=== PATIENT | female | born 1975 | race American Indian/Alaskan Native ===

== ENCOUNTER 2017-01-23 11:37 | Emergency (ER) | payer SELFPAY ==
[2017-01-23 11:59] VITALS: TEMP 98.3
[2017-01-23] MEDS ORDERED: Oxycodone/Acetaminophen 5/325 mg Tab PO STA (12:35)
--- NOTE | 2017-01-23 13:56 | ED PDOC ---
Arrival/HPI - General Chief Complaint: Back Pain Time Seen by Provider: 01/23/17 11:50 Historian: Patient - History of Present Illness Narrative History of Present Illness (Text): 01/23/17 13:58 Patient reports 2 day h/o atraumatic pain in the lower back, worse with movement and with certain positions, especially going from standing to sitting and vice versa, states that she started doing an excercise regimen ~2 weeks ago which include doing crunches, jumping jacks and other kinds of exercises and feels that could have triggered the back pain. Patient states early this morning at 9:00 she took a dose of tramadol and baclofen without any relief, then at 11:00 prior to arrival she took a dose of Motrin 800 mg. Otherwise: (- ) paresthesias, (-) weakness, (-) acute bowel or bladder dysfunction, (-) fever. Has history of prior back problem. PMD Ahktar Past Medical History - Provider Review Nursing Documentation Reviewed: Yes - Infectious Disease Hx of Infectious Diseases: None - Pulmonary Hx Asthma: Yes - Psychiatric Hx Substance Use: No - Surgical History Hx Hysterectomy: Yes Hx Tubal Ligation: Yes - Anesthesia Hx Anesthesia: Yes Hx Anesthesia Reactions: No Hx Malignant Hyperthermia: No Family/Social History - Physician Review Nursing Documentation Reviewed: Yes Family/Social History: No Known Family HX Smoking Status: Never Smoked Hx Alcohol Use: No Hx Substance Use: No Allergies/Home Meds Allergies/Adverse Reactions: Allergies No Known Allergies Allergy (Verified 01/23/17 12:00) Review of Systems - Review of Systems Constitutional: Normal. absent: Fatigue, Weight Change, Fevers Respiratory: Normal. absent: SOB, Cough Cardiovascular: Normal. absent: Chest Pain, Palpitations Gastrointestinal: Normal. absent: Abdominal Pain, Stool Changes, Appetite Changes Musculoskeletal: Normal, Back Pain (prior back pain). absent: Arthralgias, Neck Pain Skin: Normal. absent: Rash, Pruritis, Skin Lesions Physical Exam - Physical Exam Narrative Physical Exam (Text): 01/23/17 14:01 GENERAL APPEARANCE: Patient is awake, alert, oriented x 3, in no acute distress. SKIN: Warm, dry; (-) cyanosis. EYES: (-) conjunctival pallor. ENMT: Mucous membranes moist. NECK: (-) tenderness, (-) stiffness, (-) lymphadenopathy. CHEST AND RESPIRATORY: (-) rales, (-) rhonchi, (-) wheezes; breath sounds equal bilaterally. HEART AND CARDIOVASCULAR: (-) irregularity; (-) murmur, (-) gallop. ABDOMEN AND GI: Soft; (-) tenderness; (-) palpable mass. BACK: Diffusely tender paralumbar area, (+) mild spasm, (-) direct bony tenderness, (-) deformity. Straight leg raising (-) bilaterally. EXTREMITIES: (-) deformity. Distal pulses good bilaterally. NEURO AND PSYCH: Mental status as above. Intact sensation bilaterally; normal strength in extension of the knees, plantar and dorsiflexion of the toes. DTRs symmetric. Vital Signs Temp Pulse Resp BP Pulse Ox 01/23/17 12:59 68 18 119/72 99 01/23/17 11:50 98.3 F 75 20 119/84 100 Medical Decision Making ED Course and Treatment: 01/23/17 13:52 41 yo F c/o low back pain, likely muscle spasm. Given percocet and flexeril po. On re-evaluation, patient reports improvement of pain. Patient has no focal neurological deficits on repeat examination. Patient states that she feels comfortable going home with outpatient follow-up. Patient states she understands to return to the ER right away for new or worsening symptoms or for inability to f/u with PMD as instructed. Patient states that she fully agrees with and understands discharge instructions. States that she agrees with the plan and disposition. Verbalized and repeated discharge instructions and plan. I have given the patient opportunity to ask any additional questions. - Medication Orders Current Medication Orders: Discontinued Medications Cyclobenzaprine HCl (Flexeril) 10 mg PO STAT STA Stop: 01/23/17 12:36 Last Admin: 01/23/17 12:49 Dose: 10 MG Oxycodone/Acetaminophen (Percocet 5/325 Mg Tab) 1 tab PO STAT STA Stop: 01/23/17 12:36 Last Admin: 01/23/17 12:50 Dose: 1 TAB - PA / TRAIN PLANNER / Resident Statement / has reviewed & agrees with the documentation as recorded. Disposition/Present on Arrival - Present on Arrival Any Indicators Present on Arrival: No History of DVT/PE: No History of Uncontrolled Diabetes: No Urinary Catheter: No History of Decub. Ulcer: No History Surgical Site Infection Following: None - Disposition Have Diagnosis and Disposition been Completed?: Yes Diagnosis: Low back pain Disposition: HOME/ ROUTINE Disposition Time: 13:54 Patient Plan: Discharge Patient Problems: Current Active Problems Problem Status Diagnosed Low back pain Acute Condition: IMPROVED Discharge Instructions (ExitCare): Acute Low Back Pain (ED) Print Language: CHILEAN Additional Instructions: Thank you for letting us take care of you today. You were treated for low back pain. The emergency medical care you received today was directed at your acute symptoms. If you were prescribed any medication, please fill it and take as directed. It may take several days for your symptoms to resolve. Return to the Emergency Department if your symptoms worsen, do not improve, or if you have any other problems. Please contact your doctor in 2 days for re-evaluation and follow up. Bring any paperwork you were given at discharge with you along with any medications you are taking to your follow up visit. Our treatment cannot replace ongoing medical care by a primary care provider (PCP) outside of the emergency department. Thank you for allowing the [facility] team to be part of your care today. Prescriptions: Cyclobenzaprine [Cyclobenzaprine HCl] 10 mg PO TID PRN #15 tab PRN Reason: Muscle Spasm Meloxicam [Mobic] 15 mg PO DAILY #20 tab Forms: WORK NOTE
[2017-01-23 14:10] VITALS: BP 114/72; PULSE 66; RESP 17; O2SAT 97
== END 2017-01-23 14:10 | disposition home or self-care (01) ==
LOC: ED 11:37
DX: M54.5 Low back pain (principal)

== ENCOUNTER 2017-01-23 23:39 | Emergency (ER) | payer SELFPAY ==
[2017-01-23 23:51] VITALS: BMI 28.1
[2017-01-23 23:57] VITALS: TEMP 98.1; O2SAT 100
[2017-01-24] MEDS ORDERED: Oxycodone/Acetaminophen 5/325 mg Tab PO STA (00:11)
--- NOTE | 2017-01-24 00:11 | ED PDOC ---
Arrival/HPI - General Chief Complaint: Back Pain Time Seen by Provider: 01/24/17 00:02 Historian: Patient - History of Present Illness Narrative History of Present Illness (Text): 01/24/17 00:06 41 y/o female, pmh including chronic low back pain/pinched nerve?, nkda, c/o lower back pain x 1 week s/p starting new exercise including heavy lifting. Aching and sharp pain, occasionally radiating to the lt. lower extremity with occasional numbness and tingling, no urinary incontinence or retention, no urinary symptoms, was seen here yesterday and discharge home, stated that the pain return again, no palpitation, no dizziness, no new injury or fall, no other medical or psychological complaints. Past Medical History - Provider Review Nursing Documentation Reviewed: Yes - Infectious Disease Hx of Infectious Diseases: None - Cardiac Hx Cardiac Disorders: No - Pulmonary Hx Asthma: Yes - Neurological Hx Neurological Disorder: No - HEENT Hx HEENT Disorder: No - Renal Hx Renal Disorder: No - Endocrine/Metabolic Hx Endocrine Disorders: No - Hematological/Oncological Hx Blood Disorders: No - Integumentary Hx Dermatological Disorder: No - Musculoskeletal/Rheumatological Hx Musculoskeletal Disorders: No - Gastrointestinal Hx Gastrointestinal Disorders: No - Genitourinary/Gynecological Hx Genitourinary Disorders: No - Psychiatric Hx Psychophysiologic Disorder: No Hx Substance Use: No - Surgical History Hx Section: Yes Hx Hysterectomy: Yes Hx Tubal Ligation: Yes - Anesthesia Hx Anesthesia: Yes Hx Anesthesia Reactions: No Hx Malignant Hyperthermia: No Family/Social History - Physician Review Nursing Documentation Reviewed: Yes Family/Social History: Unknown Family HX Smoking Status: Never Smoked Hx Alcohol Use: No Hx Substance Use: No Allergies/Home Meds Allergies/Adverse Reactions: Allergies No Known Allergies Allergy (Verified 01/23/17 23:51) Review of Systems - Review of Systems Constitutional: absent: Fatigue, Fevers Eyes: absent: Vision Changes ENT: absent: Hearing Changes Respiratory: absent: Cough Cardiovascular: absent: Chest Pain Gastrointestinal: absent: Abdominal Pain, Diarrhea, Nausea, Vomiting Genitourinary Female: absent: Dysuria, Frequency, Hematuria, Urine Output Changes, Vaginal Bleeding, Vaginal Discharge, Other Musculoskeletal: Back Pain. absent: Arthralgias, Neck Pain, Joint Swelling, Myalgias Skin: absent: Rash, Pruritis, Skin Lesions Neurological: absent: Headache, Dizziness, Focal Weakness, Gait Changes, Speech Changes, Facial Droop, Disequilibrium, Seizure Endocrine: absent: Diaphoresis Hemo/Lymphatic: absent: Adenopathy Physical Exam Vital Signs Reviewed: Yes Vital Signs Temp Pulse Resp BP Pulse Ox 01/23/17 23:54 98.1 F 84 18 108/74 100 Temperature: Afebrile Blood Pressure: Normal Pulse: Regular Respiratory Rate: Normal Appearance: Positive for: Well-Appearing, Non-Toxic, Uncomfortable Pain Distress: Severe Mental Status: Positive for: Alert and Oriented X 3 - Systems Exam Head: Present: Atraumatic, Normocephalic Pupils: Present: PERRL Extroacular Muscles: Present: EOMI Conjunctiva: Present: Normal Mouth: Present: Moist Mucous Membranes Neck: Present: Normal Range of Motion, Trachea Midline. No: Meningeal Signs, MIDLINE TENDERNESS, Paraspinal Tenderness, Lymphadenopathy Respiratory/Chest: Present: Clear to Auscultation, Good Air Exchange. No: Respiratory Distress, Accessory Muscle Use Cardiovascular: Present: Regular Rate and Rhythm, Normal S1, S2. No: Murmurs Abdomen: Present: Normal Bowel Sounds. No: Tenderness, Distention, Peritoneal Signs Back: Present: Normal Inspection, Other (no rash. ). No: CVA Tenderness, Midline Tenderness, Paraspinal Tenderness, Pain with Leg Raise (unable to perform SLR test due to the pain), Decubitus Ulcer Upper Extremity: Present: Normal Inspection. No: Cyanosis, Edema Lower Extremity: Present: Normal Inspection. No: Edema Neurological: Present: GCS=15, CN II-XII Intact, Speech Normal Skin: Present: Warm, Dry, Normal Color. No: Rashes Psychiatric: Present: Alert, Oriented x 3, Normal Insight, Normal Concentration Medical Decision Making ED Course and Treatment: 01/24/17 00:13 -toradol IM/percocet/lidoderm patch -Lumbar CT -Observe and reassess 01/24/17 01:22 -CT show degenerative/inflammatory changes including Ligamentum flavum thickening. -Ligamentum flavum thickening describes a condition in which the ligamentum flavum demonstrates degenerative or inflammatory changes which result in it swelling. Pt. given mobic and flexeril, I will give her lidoderm patch and prednisone 40mg po in the ER. -Pt. feels much better, cane ordered and given. -Discharge home with lidoderm patch, medrodosepak, cane, continue the mobic and flexeril at home, avoid gym or exercise for 2 weeks, follow up with your own pmd for outpatient physical therapy or MRI if the pain persist without improvement, return to the ER for any new or worsening signs or symptoms. - RAD Interpretation Radiology Orders: 01/24/17 00:11 LUMBAR SPINE W/O CONTRAST [CT] Stat Physical Science Teacher: Radiologist - Medication Orders Current Medication Orders: Discontinued Medications Ketorolac Tromethamine (Toradol) 60 mg IM STAT STA Stop: 01/24/17 00:12 Lidocaine (Lidoderm) 1 ea TD DAILY LAINEY Lidocaine (Lidoderm) 1 ea TD STAT STA Stop: 01/24/17 00:58 Oxycodone/Acetaminophen (Percocet 5/325 Mg Tab) 1 tab PO STAT STA Stop: 01/24/17 00:12 - PA / JUNIOR ASSISTANT MANAGER / Resident Statement / has reviewed & agrees with the documentation as recorded. Disposition/Present on Arrival - Present on Arrival Any Indicators Present on Arrival: No History of DVT/PE: No History of Uncontrolled Diabetes: No Urinary Catheter: No History of Decub. Ulcer: No History Surgical Site Infection Following: None - Disposition Have Diagnosis and Disposition been Completed?: Yes Diagnosis: Degenerative lumbar disc, Hypertrophy of ligamentum flavum, Lumbar radiculopathy, acute Disposition: HOME/ ROUTINE Disposition Time: 01:26 Patient Plan: Discharge Condition: IMPROVED Additional Instructions: Discharge home with lidoderm patch, medrodosepak, cane, continue the mobic and flexeril at home, avoid gym or exercise for 2 weeks, follow up with your own pmd for outpatient physical therapy or MRI if the pain persist without improvement, return to the ER for any new or worsening signs or symptoms. Prescriptions: Lidocaine 5% [Lidoderm] 1 patch TOP DAILY PRN #14 patch PRN Reason: Other Methylprednisolone [Medrol Dose Pack (21 tabs)] 4 mg PO DAILY #21 mg Referrals: Ramos Granados DO [Staff Provider] - Follow up with primary [facility] [Outside] - Follow up with primary Forms: WORK NOTE
[2017-01-24] MEDS ORDERED: Lidocaine 5% Patch TD STA (00:57)
--- NOTE | 2017-01-24 01:14 | CT ---
EXAM: CT Lumbar Spine Without Intravenous Contrast CLINICAL HISTORY: 41 years old, female; Pain; Low back pain; Additional info: Chronic lower back pain, radiating lle TECHNIQUE: Axial computed tomography images of the lumbar spine without intravenous contrast. This CT exam was performed using one or more of the following dose reduction techniques: automated exposure control, adjustment of the mA and/or kV according to patient size, and/or use of iterative reconstruction technique. Coronal and sagittal reformatted images were created and reviewed. COMPARISON: No relevant prior studies available. FINDINGS: Vertebrae: Unremarkable. No acute fracture. Discs/spinal canal/neural foramina: No acute findings. Degenerative disease is identified at the level of L5/S1, with endplate change. No significant spinal canal stenosis. Hypertrophy of the ligamentum flavum is present. Soft tissues: The air-filled appendix is of normal caliber (series 4, image 106). IMPRESSION: Degenerative disease, without acute fracture.
[2017-01-24 04:20] VITALS: BP 112/70; PULSE 88; RESP 16
[2017-01-24] MEDS ORDERED: Lidocaine 5% Patch TD SCH (10:00)
== END 2017-01-24 02:00 | disposition home or self-care (01) ==
LOC: ED 23:39
DX: M54.16 Radiculopathy, lumbar region (principal); M51.36 Other intervertebral disc degeneration, lumbar region; M46.00 Spinal enthesopathy, site unspecified
CPT/HCPCS: 72131; 96372; 99282; J1885